=== PATIENT | female | born 1930 | race Caucasian/White ===

== ENCOUNTER 2018-11-27 12:11 | Inpatient (IN) | payer OTHER ==
[~2018-11-27] VITALS: Ht 152.4 cm; Wt 45.5 kg
[2018-11-27 13:06] LABS: CALCIUM 8.7 mg/dL (8.5-10.1); CARBON DIOXIDE 28.5 mmol/L (21-32); CHLORIDE SERUM 107 mmol/L (98-107); CREATININE SERUM 1.4 mg/dL (0.6-1.0); GLUCOSE SERUM 147 mg/dL (74-106); POTASSIUM SERUM 3.8 mmol/L (3.5-5.1); SODIUM SERUM 145 mmol/L (136-145)
[2018-11-27 13:10] LABS: ALBUMIN 3.2 g/dL (3.4-5.0); ALKALINE PHOSPHATASE 83 U/L (46-116); ALT/SGPT 19 U/L (14-59); AST/SGOT 29 U/L (15-37); BILIRUBIN TOTAL 0.29 mg/dL (0.20-1.00); TOTAL PROTEIN, SERUM 7.5 g/dL (6.4-8.2)
[2018-11-27 13:11] LABS: BASOPHIL % 0.3 % (0-2); PLATELET COUNT 170 x10^3mcL (130-400); RED CELL DISTRIBUTION WIDTH 12.5 % (11.5-14.5)
[2018-11-27] MEDS ORDERED: PERCOCET1 TAB PO (13:56)
[2018-11-27] MEDS ORDERED: GLIMEPIRIDE2 M1 PO (13:56)
[2018-11-27] MEDS ORDERED: NAMENDA10 M2 PO (13:57)
[2018-11-27] MEDS ORDERED: LOSARTAN POTASS50 M1 PO (13:57)
[2018-11-27] MEDS ORDERED: CATAPRES0.1 MG PO (13:57)
[2018-11-27] MEDS ORDERED: GABAPENTIN600 M1 PO (13:58)
[2018-11-27] MEDS ORDERED: CYMBALTA30 M1 PO (13:59)
[2018-11-27] MEDS ORDERED: EXELON4.6 MG/21 TOP (13:59)
[2018-11-27] MEDS ORDERED: MASON NATURAL1000 IU PO (13:59)
[2018-11-27] MEDS ORDERED: VESICARE5 M1 PO (13:59)
[2018-11-27] MEDS ORDERED: CRESTOR10 M1 PO (13:59)
[2018-11-27] MEDS ORDERED: CITRACAL + D E1 EACH PO (14:00)
[2018-11-27] MEDS ORDERED: ACTIGALL300 MG PO (14:00)
[2018-11-27] MEDS ORDERED: ISOSORBIDE DINIT5 M2 PO (14:03)
[2018-11-27] MEDS ORDERED: LUNESTA2 M1 PO (14:04)
[2018-11-27 14:09] LABS: microscopic required? YES
[2018-11-27 14:10] LABS: urine erythrocyte 1+ (NEGATIVE)
[2018-11-27 14:30] LABS: MAGNESIUM 2.1 mg/dL (1.8-2.4); PHOSPHOROUS 3.3 mg/dL (2.5-4.9)
[2018-11-27 14:44] VITALS: BP 132/68
[2018-11-27 14:54] VITALS: BP 157/86
[2018-11-27 16:06] VITALS: BP 162/78
[2018-11-27 20:59] VITALS: BP 183/84
[2018-11-27 21:10] LABS: AMPHETAMINE QUAL UR NONE DETECTED (See below)
[2018-11-28] VITALS (8 sets, daily range): BP systolic 159–201; BP diastolic 79–109
[2018-11-28 06:16] LABS: CALCIUM 9.1 mg/dL (8.5-10.1); CARBON DIOXIDE 28.1 mmol/L (21-32); CHLORIDE SERUM 108 mmol/L (98-107); CREATININE SERUM 1.2 mg/dL (0.6-1.0); GLUCOSE SERUM 121 mg/dL (74-106); MAGNESIUM 1.9 mg/dL (1.8-2.4); PHOSPHOROUS 2.9 mg/dL (2.5-4.9); POTASSIUM SERUM 4.5 mmol/L (3.5-5.1); SODIUM SERUM 146 mmol/L (136-145)
[2018-11-28 06:20] LABS: BASOPHIL % 0.1 % (0-2); PLATELET COUNT 160 x10^3mcL (130-400); RED CELL DISTRIBUTION WIDTH 12.9 % (11.5-14.5)
[2018-11-29 00:35] VITALS: BP 162/84
[2018-11-29 06:07] VITALS: BP 153/74
[2018-11-29 06:56] LABS: BASOPHIL % 0.3 % (0-2); PLATELET COUNT 169 x10^3mcL (130-400); RED CELL DISTRIBUTION WIDTH 13.1 % (11.5-14.5)
[2018-11-29 06:58] LABS: CALCIUM 8.7 mg/dL (8.5-10.1); CARBON DIOXIDE 28.2 mmol/L (21-32); CHLORIDE SERUM 107 mmol/L (98-107); CREATININE SERUM 1.1 mg/dL (0.6-1.0); GLUCOSE SERUM 101 mg/dL (74-106); MAGNESIUM 1.9 mg/dL (1.8-2.4); PHOSPHOROUS 3.3 mg/dL (2.5-4.9); POTASSIUM SERUM 4.2 mmol/L (3.5-5.1); SODIUM SERUM 144 mmol/L (136-145)
[2018-11-29 09:48] VITALS: BP 213/88
[2018-11-29 13:30] VITALS: BP 122/71
[2018-11-29 17:05] VITALS: BP 153/80
[2018-11-29 21:06] VITALS: BP 165/87
[2018-11-30 05:18] VITALS: BP 158/87
[2018-11-30 06:12] LABS: BASOPHIL % 0.5 % (0-2); PLATELET COUNT 148 x10^3mcL (130-400); RED CELL DISTRIBUTION WIDTH 12.7 % (11.5-14.5)
[2018-11-30 06:15] LABS: CARBON DIOXIDE 23.2 mmol/L (21-32); CHLORIDE SERUM 106 mmol/L (98-107); GLUCOSE SERUM 85 mg/dL (74-106); MAGNESIUM 1.7 mg/dL (1.8-2.4); PHOSPHOROUS 2.9 mg/dL (2.5-4.9); POTASSIUM SERUM 3.4 mmol/L (3.5-5.1); SODIUM SERUM 143 mmol/L (136-145)
[2018-11-30 08:04] VITALS: BP 189/100
[2018-11-30 10:56] VITALS: BP 151/80
[2018-11-30 11:37] VITALS: BP 132/68
[2018-11-30 15:37] VITALS: BP 174/75
[2018-11-30 20:46] VITALS: BP 155/60
[2018-11-30 23:20] VITALS: Ht 152.4 cm; Wt 45.5 kg
[2018-12-01 05:43] VITALS: BP 136/64
[2018-12-01 06:26] LABS: BASOPHIL % 0.5 % (0-2); PLATELET COUNT 178 x10^3mcL (130-400); RED CELL DISTRIBUTION WIDTH 13.3 % (11.5-14.5)
[2018-12-01 06:33] LABS: CALCIUM 8.2 mg/dL (8.5-10.1); CARBON DIOXIDE 22.8 mmol/L (21-32); CHLORIDE SERUM 114 mmol/L (98-107); GLUCOSE SERUM 112 mg/dL (74-106); SODIUM SERUM 149 mmol/L (136-145)
[2018-12-01 08:33] VITALS: BP 167/63
[2018-12-01 13:11] VITALS: BP 159/75
[2018-12-01 17:12] VITALS: BP 174/84
[2018-12-01 20:54] VITALS: BP 176/82
[2018-12-02 00:10] VITALS: BP 113/69
[2018-12-02 06:16] VITALS: BP 158/83
[2018-12-02 06:35] LABS: CALCIUM 8.2 mg/dL (8.5-10.1); CARBON DIOXIDE 24.6 mmol/L (21-32); CHLORIDE SERUM 110 mmol/L (98-107); CREATININE SERUM 0.9 mg/dL (0.6-1.0); GLUCOSE SERUM 116 mg/dL (74-106); POTASSIUM SERUM 3.7 mmol/L (3.5-5.1); SODIUM SERUM 146 mmol/L (136-145)
[2018-12-02 06:48] LABS: BASOPHIL % 0.4 % (0-2); PLATELET COUNT 191 x10^3mcL (130-400); RED CELL DISTRIBUTION WIDTH 12.8 % (11.5-14.5)
[2018-12-02 08:31] VITALS: BP 170/72
[2018-12-02] MEDS ORDERED: CARVEDILOL25 M1 PO (09:57)
[2018-12-02] MEDS ORDERED: LEVAQUIN750 MG PO (09:57)
[2018-12-02] MEDS ORDERED: AMLODIPINE BESYL5 M2 PO (09:57)
[2018-12-02 10:12] VITALS: BP 170/72
[2018-12-02 12:00] VITALS: BP 126/65
[2018-12-02 12:02] VITALS: BP 126/65
[2018-12-02] MEDS ORDERED: TOZAL SOFTGEL1 EACH PO (12:02)
== END 2018-12-02 13:31 | disposition home or self-care (01) | DRG 193 ==
LOC: ED 12:11 → DU 13:53 → MU 12-01 17:11
PROVIDERS: Emergency Medicine; ADMIT Internal Medicine
DX: J18.9 Pneumonia, unspecified organism (principal); J96.01 Acute respiratory failure with hypoxia; N17.0 Acute kidney failure with tubular necrosis; E44.1 Mild protein-calorie malnutrition; E11.9 Type 2 diabetes mellitus without complications; E78.5 Hyperlipidemia, unspecified; R80.9 Proteinuria, unspecified; I10 Essential (primary) hypertension; F03.90 Unspecified dementia, unspecified severity, without behavioral disturbance, psychotic disturbance, mood disturbance, and anxiety; M19.90 Unspecified osteoarthritis, unspecified site; Z68.23 Body mass index [BMI] 23.0-23.9, adult; Z79.84 Long term (current) use of oral hypoglycemic drugs
CPT/HCPCS: 82962; 83880; 94150; 97116-GP; 97530-GP; G0378; J0360; J0456; J0696; J1644; J1815; J1885; J1956; J3475; J3490; J7030; J7050; J7620; Q0092